=== PATIENT | male | born 1975 | race Caucasian/White ===

== ENCOUNTER 2025-11-07 22:55 | Emergency (ER) | payer SELFPAY ==
[2025-11-09] MEDS ORDERED: ACETAMINOPHEN ES 500 MG TABLET ONE (00:54)
[2025-11-09] MEDS ORDERED: NAPROXEN 250 MG TABLET ONE (00:54)
[2025-11-09] MEDS ORDERED: CYCLOBENZAPRINE 10 MG TABLET ONE (00:54)
== END 2025-11-08 00:22 | disposition left against medical advice (07) ==
LOC: ER 22:57
DX: R03.0 Elevated blood-pressure reading, without diagnosis of hypertension (principal); Z53.21 Procedure and treatment not carried out due to patient leaving prior to being seen by health care provider